=== PATIENT | female | born 1965 | race Caucasian/White ===

== ENCOUNTER → 2017-10-26 11:16 | Outpatient (CLI) | payer OTHER, SELFPAY ==
[2017-10-26 12:38] LABS: Prolactin 29.9 ng/mL (3.0-18.6)
== END ==
PROVIDERS: PCP Physician Assistant Medical
DX: E22.9 Hyperfunction of pituitary gland, unspecified (principal)
CPT/HCPCS: 36415; 84146

== ENCOUNTER → 2019-01-07 17:13 | Outpatient (CLI) | payer OTHER, SELFPAY ==
--- NOTE | 2019-01-07 | DI.MG.S_ITS ---
BILATERAL DIGITAL SCREENING MAMMOGRAM 3D/2D WITH CAD: 01/07/2019 CLINICAL: Routine screening. Comparison is made to exams dated: 10/13/2017 mammogram, 03/17/2016 mammogram, and 05/22/2014 mammogram - [facility]. There are scattered fibroglandular elements in both breasts. Current study was also evaluated with a Computer Aided Detection (CAD) system. There are mole markers on the right breast. There is a mole marker on the left breast. No significant masses, calcifications, or other findings are seen in either breast. There has been no significant interval change. IMPRESSION: NEGATIVE There is no mammographic evidence of malignancy. A 1 year screening mammogram is recommended. This exam was interpreted at Station ID: [id number]. NOTE: For mammograms, a report in lay terms will be sent to the patient. Approximately 15% of breast malignancies will not be visualized mammographically. In the management of a palpable breast mass, a negative mammogram must not discourage biopsy of a clinically suspicious lesion. Electronically Signed By: Carlos Eduardo oneil/analia:01/07/2019 19:26:51 letter sent: Normal Exam ACR BI-RADS Category 1: Negative 3341F
== END ==
PROVIDERS: Family Provider Physician Assistant Medical; PCP Physician Assistant Medical
DX: Z12.31 Encounter for screening mammogram for malignant neoplasm of breast (principal)
CPT/HCPCS: 77063; 77067

== ENCOUNTER → 2019-07-18 09:33 | Outpatient (CLI) | payer OTHER, SELFPAY ==
[2019-07-18 11:33] LABS: Prolactin 19.6 ng/mL (3.0-18.6)
== END ==
PROVIDERS: Family Provider Physician Assistant Medical; PCP Physician Assistant Medical
DX: E22.9 Hyperfunction of pituitary gland, unspecified (principal)
CPT/HCPCS: 36415; 84146

== ENCOUNTER 2019-12-25 16:21 | Emergency (ER) | payer OTHER, SELFPAY ==
[2019-12-25 16:48] VITALS: BP 155/84; PULSE 97; RESP 18; TEMP 37.2; O2SAT 98; BMI 26.6
--- NOTE | 2019-12-25 19:49 | DI.CT.S_ITS ---
PROCEDURE: CT SOFT TISSUE NECK W CON INDICATIONS: preauricular pain swelling redness R side TECHNIQUE: After the administration of intravenous contrast, 3.0 mm axial sections acquired from the sella to the aortic arch. Additional oblique axial 3.0 mm sections acquired through the pharynx. 3 mm thick coronal and sagittal reformats were generated. For radiation dose reduction, the following was used: automated exposure control. COMPARISON: None. FINDINGS: Image quality: Excellent. Lymph nodes: No enlarged lymph nodes seen throughout the neck. Vessels: Visualized vasculature appears patent. Neck spaces: The oropharynx, nasopharynx, and pharynx demonstrate no mucosal lesions. The vocal cords, false vocal cords, pyriform sinuses, epiglottis, vallecula, and tongue base all appear normal. Extramucosal spaces appear unremarkable. Glands: The parotid and submandibular glands appear normal. Thyroid gland negative . There is prominent soft tissue thickening and increased attenuation involving the right external auditory canal. There is also mild asymmetric enlargement of the adjacent right parotid gland, with enhancing presumed intraparotid lymph nodes which may be reactive although technically nonspecific etiology. No discrete abscess is seen. Left maxillary mucous retention cyst or polyp. Bones: No suspicious bony lesions. Visualized sinuses and mastoids appear unremarkable. IMPRESSION: Nonspecific prominent soft tissue thickening and ill-defined soft tissue attenuation involving the right external auditory canal. Adjacent enlargement of the right parotid gland. Findings could reflect right otitis externa, with reactive or concomitant right parotid inflammation. Superimposed postsurgical changes or recurrent tumor are in the differential. Recommend clinical correlation and management , and follow-up to exclude underlying skin or soft tissue malignancy after treatment. Dictated by: Rod Jimenez M.D. on 12/25/2019 at 20:46 Approved by: Rod Jimenez M.D. on 12/25/2019 at 20:53
[2019-12-25 20:07] LABS: Add Manual Diff / Slide Review NO; Basophils Absolute Auto 100 /uL (0-100); Basophils Percent Auto 0.6 % (0-2); Eosinophils Absolute Auto 100 /uL (0-450); Eosinophils Percent Auto 0.6 % (2-4); Hematocrit 42.2 % (36-46); Hemoglobin 14.3 g/dL (12.0-16.0); Lymphocytes Absolute Auto 1400 /uL (1100-4500); Mean Corpuscular HGB Conc 33.8 % (30-36); Mean Corpuscular Hemoglobin 31.2 PG (26-34); Mean Corpuscular Volume 92.5 fL (80-100); Monocytes Absolute Auto 900 /uL (0-900); Monocytes Percent Auto 6.1 % (3-14); Neutrophils Absolute Auto 11900 /uL (1500-7000); Neutrophils Percent Auto 82.7 % (50-75); Platelet Count 291 X10^3/uL (150-400); Red Blood Cell Count 4.56 X10^6/uL (4.0-5.2); Red Cell Distribution Width 12.9 % (11.6-14.8); White Blood Cell Count 14.4 X10^3/uL (4.5-11.0)
[2019-12-25] MEDS: SODIUM CHLORIDE 0.9% 1,000 ML 1000 ML IV (20:16)
[2019-12-25] MEDS: KETOROLAC 60 MG/2 ML VIAL 30 MG IV (20:16)
[2019-12-25 20:22] LABS: Alanine Aminotransferase 17 IU/L (<35); Albumin 4.9 g/dL (3.5-5.0); Albumin Globulin Ratio 1.5 (1.0-2.8); Alkaline Phosphatase 89 U/L (38-126); Aspartate Aminotransferase 21 IU/L (14-36); BUN Creatinine Ratio 27.3 (6-22); Bilirubin Total 0.7 mg/dL (0.2-1.3); Blood Urea Nitrogen 15 mg/dL (7-17); Calcium 9.7 mg/dL (8.4-10.2); Carbon Dioxide 25 mmol/L (22-32); Chloride 105 mmol/L (98-107); Estimated Glomerular Filt Rate > 60.0 mL/min (>60); Globulin 3.3 g/dL (1.7-4.1); Glucose 108 mg/dL (70-100); HEMOLYSIS < 15 (0-50); Lactate (Lactic Acid) 1.1 mmol/L (0.7-2.1); Magnesium 1.9 mg/dL (1.6-2.3); Sodium 138 mmol/L (137-145); Total Protein 8.2 g/dL (6.3-8.2)
--- NOTE | 2019-12-25 20:23 | PC.NURSE ---
Pt has taken 4 doses of augmentin and antibiotic ear drops. pain and inflammation continues to right ear. Inflammation is extending into check
--- NOTE | 2019-12-25 21:10 | ED.EAR ---
HPI - Ear Problem <CARMEL Abad-BC - Last Filed: 12/28/19 11:08> General Chief complaint: Ear Stated complaint: RIGHT EAR INFECTION Time Seen by Provider: 12/25/19 19:32 Source: patient and family Mode of arrival: Ambulatory Limitations: no limitations History of Present Illness HPI Narrative: The patient is a with history of cholesteatoma, hearing loss who presents with a chief complaint of worsening ear infection. She states that she was diagnosed with an ear infection yesterday, and has taken 4 doses of Augmentin. Since then she has noticed swelling in her preauricular area. She complains of severe pain, and swelling in her ear so bad she cannot use her hearing aids. She sees Dr. Bah from [facility], has an appointment with them coming up on the of next month. However her pain and swelling got so bad that she came to the emergency department today. Nausea vomiting or diarrhea. She has been using ibuprofen for pain, states that the pain is excruciating. Related Data Home Medications Medication Instructions Recorded Confirmed atorvastatin 10 mg tablet 10 mg PO DAILY 10/26/17 07/18/19 omega-3 fatty acids 1,000 mg 1,000 mg PO DAILY 07/18/19 07/18/19 capsule Previous Rx's Medication Instructions Recorded ketorolac 10 mg PO TID PRN #10 tab 12/25/19 prednisone 50 mg PO DAILY #4 tab 12/25/19 Allergies Allergy/AdvReac Type Severity Reaction Status Date / Time No Known Drug Allergies Allergy Unverified 12/25/19 16:51 Review of Systems <MARINA Abad - Last Filed: 12/28/19 11:08> Review of Systems Narrative: GENERAL: Denies chills, fatigue, malaise, fever, sweats. HEENT: See HPI RESPIRATORY: Denies dyspnea, cough, wheezing, hemoptysis, sputum. CARDIOVASCULAR: Denies chest pain, palpitations, orthopnea, edema, GASTROINTESTINAL: Denies nausea, vomiting, abdominal pain, diarrhea, constipation, melena. : Denies dysuria, frequency, incontinence, hematuria, urinary retention. MUSCULOSKELETAL: denies weakness, joint pain, or bony pain SKIN: Denies rash, skin lesions, or other NEUROLOGIC: Denies weakness, headache, numbness, change in speech, confusion, seizures, incoordination. PSYCHIATRIC: No concerning psychosocial issues. 12 point review of systems is negative except for those stated above Patient History <MARINA Abad - Last Filed: 12/28/19 11:08> Medical History Elevated prolactin level (Acute) Psoriasis (Acute) Surgical History Hx laparoscopic cholecystectomy (Acute) Social History Smoking Status: Former smoker Smoking Status: Former smoker alcohol intake frequency: 0-2 drinks per day Substance Use Type: does not use Exam <MARINA Abad - Last Filed: 12/28/19 11:08> Narrative Exam Narrative: GENERAL: This is a well-nourished, well-developed patient, teary and in mild distress HEAD: Atraumatic. Normocephalic. No temporal or scalp tenderness. EYES: Pupils equal round and reactive. Extraocular motions intact. No scleral icterus. No injection or drainage. ENT: Nose without bleeding, purulent drainage or septal hematoma. Throat without erythema, tonsillar hypertrophy or exudate. Uvula midline. Airway patent. Left ear canal has no swelling, no erythema, appears to have perforated tympanic membrane. Right ear canal erythematous, drainage noted, perforated TM noted, preauicular swelling with pain to palpation noted NECK: Trachea midline. No JVD or lymphadenopathy. Supple, nontender, no meningeal signs. CARDIOVASCULAR: Regular rate and rhythm RESPIRATORY: Clear to auscultation. Breath sounds equal bilaterally. No wheezes, rales, or rhonchi. No cough. No increased respiratory effort. No accessory muscle use. GASTROINTESTINAL: Abdomen soft, non-tender, nondistended. No hepato-splenomegaly, or palpable masses. No guarding. EXTREMITIES: No clubbing, cyanosis, or edema. No joint tenderness, effusion, or edema noted. BACK: Nontender without deformity or crepitance. No flank tenderness. NEURO: AOx3. SKIN: No rash or erythema. Initial Vital Signs Initial Vital Signs: Vital Signs Temperature 98.9 F 12/25/19 16:48 Pulse Rate 97 H 12/25/19 16:48 Respiratory Rate 18 12/25/19 16:48 Blood Pressure 155/84 H 12/25/19 16:48 Pulse Oximetry 98 12/25/19 16:48 <Alvino Watson DO - Last Filed: 12/29/19 19:26> Initial Vital Signs Initial Vital Signs: Vital Signs Temperature 98.9 F 12/25/19 16:48 Pulse Rate 97 H 12/25/19 16:48 Respiratory Rate 18 12/25/19 16:48 Blood Pressure 155/84 H 12/25/19 16:48 Pulse Oximetry 98 12/25/19 16:48 Scores <MARINA Abad - Last Filed: 12/28/19 11:08> GCS Altaf coma scale eye opening: Spontaneous Altaf coma scale verbal response: Orientated Altaf coma scale motor response: Obey commands Altaf coma scale total score: 15 Course <MARINA Abad - Last Filed: 12/28/19 11:08> Orders Ordered: Discontinued Medications Hydrocodone Bitart/Acetaminophen (Vicodin 5/325 Prepack) 1 bottle MISC SEEINSTR ONE Stop: 12/25/19 21:36 Last Admin: 12/25/19 21:53 Dose: 1 bottle Documented by: FARNAZ Sodium Chloride (Normal Saline 0.9%) 1,000 mls @ 1,000 mls/hr IV BOLUS ONE Stop: 12/25/19 20:46 Last Infusion: 12/25/19 21:45 Dose: 0 mls/hr Documented by: Admin: 12/25/19 20:16 Dose: 1,000 mls/hr Documented by: FARNAZ Ketorolac Tromethamine (Toradol) 30 mg IV NOW ONE Stop: 12/25/19 19:48 Last Admin: 12/25/19 20:16 Dose: 30 mg Documented by: FARNAZ Ketorolac Tromethamine (Toradol 10mg Prepack) 1 bottle MISC SEEINSTR ONE Stop: 12/25/19 21:36 Last Admin: 12/25/19 21:53 Dose: 1 bottle Documented by: FARNAZ Prednisone (Deltasone) 60 mg PO NOW ONE Stop: 12/25/19 21:36 Last Admin: 12/25/19 21:53 Dose: 60 mg Documented by: FARNAZ Vital Signs Vital signs: Vital Signs - 8 hr 12/25/19 16:48 Temperature 98.9 F Pulse Rate 97 H Respiratory Rate 18 Blood Pressure 155/84 H Pulse Oximetry 98 <Alvino Watson DO - Last Filed: 12/29/19 19:26> Orders Ordered: Discontinued Medications Hydrocodone Bitart/Acetaminophen (Vicodin 5/325 Prepack) 1 bottle MISC SEEINSTR ONE Stop: 12/25/19 21:36 Last Admin: 12/25/19 21:53 Dose: 1 bottle Documented by: FARNAZ Sodium Chloride (Normal Saline 0.9%) 1,000 mls @ 1,000 mls/hr IV BOLUS ONE Stop: 12/25/19 20:46 Last Infusion: 12/25/19 21:45 Dose: 0 mls/hr Documented by: Admin: 12/25/19 20:16 Dose: 1,000 mls/hr Documented by: FARNAZ Ketorolac Tromethamine (Toradol) 30 mg IV NOW ONE Stop: 12/25/19 19:48 Last Admin: 12/25/19 20:16 Dose: 30 mg Documented by: FARNAZ Ketorolac Tromethamine (Toradol 10mg Prepack) 1 bottle MISC SEEINSTR ONE Stop: 12/25/19 21:36 Last Admin: 12/25/19 21:53 Dose: 1 bottle Documented by: FARNAZ Prednisone (Deltasone) 60 mg PO NOW ONE Stop: 12/25/19 21:36 Last Admin: 12/25/19 21:53 Dose: 60 mg Documented by: FARNAZ Vital Signs Vital signs: Vital Signs - 8 hr 12/25/19 16:48 Temperature 98.9 F Pulse Rate 97 H Respiratory Rate 18 Blood Pressure 155/84 H Pulse Oximetry 98 Medical Decision Making <CARMEL Abad-BC - Last Filed: 12/28/19 11:08> Lab Data Result diagrams: 12/25/19 20:00 12/25/19 20:00 Labs: Lab Results 12/25/19 12/25/19 12/25/19 Range/Units 20:00 20:00 20:00 WBC 14.4 H (4.5-11.0) X10^3/uL RBC 4.56 (4.0-5.2) X10^6/uL Hgb 14.3 (12.0-16.0) g/dL Hct 42.2 (36-46) % MCV 92.5 (80-100) fL MCH 31.2 (26-34) PG MCHC 33.8 (30-36) % RDW 12.9 (11.6-14.8) % Plt Count 291 (150-400) X10^3/uL Neut % (Auto) 82.7 H (50-75) % Lymph % (Auto) 10.0 L (25-40) % [place] % (Auto) 6.1 (3-14) % Eos % (Auto) 0.6 L (2-4) % Baso % (Auto) 0.6 (0-2) % Neut # (Auto) 88432 H (4659-0980) /uL Lymph # (Auto) 1400 (4380-3267) /uL [place] # (Auto) 900 (0-900) /uL Eos # (Auto) 100 (0-450) /uL Baso # (Auto) 100 (0-100) /uL Sodium 138 (137-145) mmol/L Potassium 4.0 (3.4-5.1) mmol/L Chloride 105 (98-107) mmol/L Carbon Dioxide 25 (22-32) mmol/L BUN 15 (7-17) mg/dL Creatinine 0.55 (0.52-1.04) mg/dL Estimated GFR > 60.0 (>60) mL/min BUN/Creatinine Ratio 27.3 H (6-22) Glucose 108 H (70-100) mg/dL Lactate 1.1 (0.7-2.1) mmol/L Calcium 9.7 (8.4-10.2) mg/dL Magnesium 1.9 (1.6-2.3) mg/dL Total Bilirubin 0.7 (0.2-1.3) mg/dL AST 21 (14-36) IU/L ALT 17 (<35) IU/L Alkaline Phosphatase 89 (38-126) U/L Total Protein 8.2 (6.3-8.2) g/dL Albumin 4.9 (3.5-5.0) g/dL Globulin 3.3 (1.7-4.1) g/dL Albumin/Globulin Ratio 1.5 (1.0-2.8) MDM Narrative Medical decision making narrative: The patient is a 54-year-old female who presents with a chief complaint of worsening ear infection on the right side. Given concerns of parotiditis on her exam, I did obtain a soft tissue neck. This shows some parotid swelling, no obvious abscess or infection. She has no signs of systemic illness, is eating and drinking well, is afebrile. I spoke with Dr. herrera from [facility] recommends that the post continue her antibiotic drops, Augmentin p.o. as prescribed by the outside provider. Will add prednisone as per his recommendations. The patient is welcome to call them if she feels worse to get in for a quicker appointment than the . Otherwise to keep her appointment on the . I discussed this at length with the patient. She feels much improved after the above-stated therapies, also gave prescriptions of Toradol and take-home packs of Toradol and [place]. Discussed coming back to the emergency department for any acute concerns. Patient has been have no questions or concerns upon discharge and state understanding of return precautions as well as follow-up care. <Alvino Watson, DO - Last Filed: 12/29/19 19:26> Lab Data Labs: Lab Results 12/25/19 12/25/19 12/25/19 Range/Units 20:00 20:00 20:00 WBC 14.4 H (4.5-11.0) X10^3/uL RBC 4.56 (4.0-5.2) X10^6/uL Hgb 14.3 (12.0-16.0) g/dL Hct 42.2 (36-46) % MCV 92.5 (80-100) fL MCH 31.2 (26-34) PG MCHC 33.8 (30-36) % RDW 12.9 (11.6-14.8) % Plt Count 291 (150-400) X10^3/uL Neut % (Auto) 82.7 H (50-75) % Lymph % (Auto) 10.0 L (25-40) % [place] % (Auto) 6.1 (3-14) % Eos % (Auto) 0.6 L (2-4) % Baso % (Auto) 0.6 (0-2) % Neut # (Auto) 09271 H (7492-0445) /uL Lymph # (Auto) 1400 (6459-4174) /uL [place] # (Auto) 900 (0-900) /uL Eos # (Auto) 100 (0-450) /uL Baso # (Auto) 100 (0-100) /uL Sodium 138 (137-145) mmol/L Potassium 4.0 (3.4-5.1) mmol/L Chloride 105 (98-107) mmol/L Carbon Dioxide 25 (22-32) mmol/L BUN 15 (7-17) mg/dL Creatinine 0.55 (0.52-1.04) mg/dL Estimated GFR > 60.0 (>60) mL/min BUN/Creatinine Ratio 27.3 H (6-22) Glucose 108 H (70-100) mg/dL Lactate 1.1 (0.7-2.1) mmol/L Calcium 9.7 (8.4-10.2) mg/dL Magnesium 1.9 (1.6-2.3) mg/dL Total Bilirubin 0.7 (0.2-1.3) mg/dL AST 21 (14-36) IU/L ALT 17 (<35) IU/L Alkaline Phosphatase 89 (38-126) U/L Total Protein 8.2 (6.3-8.2) g/dL Albumin 4.9 (3.5-5.0) g/dL Globulin 3.3 (1.7-4.1) g/dL Albumin/Globulin Ratio 1.5 (1.0-2.8) Discharge Plan Departure Patient Disposition: Home Clinical Impression: Swelling of right parotid gland Otitis externa Qualifiers: Otitis externa type: unspecified type Chronicity: acute Laterality: right Qualified Code(s): H60.501 - Unspecified acute noninfective otitis externa, right ear Discharge Date/Time: 12/25/19 22:04 Instructions: How to Instill Ear Drops, DI for Otitis Externa, DI for Parotitis-Adult Activity Restrictions/Additional Instructions: Thank you for trusting us with your care today. I am sorry that you are feeling poorly and hope you feel better soon. I spoke with Dr. Sebastian from [facility] regarding your exam and imaging results. We have placed you on steroids. We are continuing the Augmentin and ear drops prescribed by the other provider. As discussed, you can call [facility] and speak with the answering service if you are feeling poorly and getting worse while they are closed. Please call them if you are getting worse. Please come back to the emergency department for any acute concerns We are sending her home with to pre packs today. This includes hydrocodone with Tylenol and ketorolac I have given you a pack of a narcotic for pain. Be aware that this can be constipating and sedating. I encouraged taking with a stool softener, pushing fluids and fiber. Do not take and drive, operate heavy machinery, etc. Do not combine it with any other sedating substances such as alcohol. The combination of narcotics and alcohol and/or other sedatives can be lethal. I sent 2 prescriptions to [facility] pharmacy. This includes a steroid as well as ketorolac or Toradol. I have given you a prescription of Toradol. This is an NSAID. Do not combine it with other NSAIDs such as Aleve or ibuprofen. I suggest taking it with some food, as it can irritate your stomach. Prescriptions: New ketorolac 10 mg tablet 10 mg PO TID PRN (Reason: pain) Qty: 10 RF: 0 prednisone 50 mg tablet 50 mg PO DAILY Qty: 4 RF: 0 No Action atorvastatin [Lipitor] 10 mg tablet 10 mg PO DAILY RF: 0 omega-3 fatty acids [Fish Oil Concentrate] 1,000 mg capsule 1,000 mg PO DAILY RF: 0 Referrals: [facility] [Provider Group] Zhang Saenz MD [Physician] - Cecil Sebastian MD [Physician] - Rachel Quintero PA-C [Primary Care Provider] - <Alvino Watson DO - Last Filed: 12/29/19 19:26> [facility] I was immediately available in the department for consultation. This documentation has been reviewed and I agree with assessment and plan. Supervised by Alvino Watson DO
[2019-12-25] MEDS: KETOROLAC 10MG PREPACK 1 BOTTLE MISC (21:53)
[2019-12-25] MEDS: predniSONE 20 MG TABLET 60 MG PO (21:53)
[2019-12-25] MEDS: HYDROCODONE/ACET 5/325 PREPACK 1 BOTTLE MISC (21:53)
[2019-12-25 21:57] VITALS: BP 141/78; PULSE 88; RESP 17; O2SAT 98
== END 2019-12-25 22:04 | disposition home or self-care (01) ==
PROVIDERS: Emergency Provider Nurse Practitioner Family; Family Provider Physician Assistant Medical; PCP Physician Assistant Medical
DX: H60.501 Unspecified acute noninfective otitis externa, right ear (principal); K11.1 Hypertrophy of salivary gland
CPT/HCPCS: 36415; 70491; 80053; 83605; 83735; 85025; 96361; 96374; 99284; J1885; Q9967

== ENCOUNTER → 2020-02-24 08:47 | Outpatient (CLI) | payer OTHER, SELFPAY ==
[2020-02-25 14:12] LABS: COVID19 Sendout Not Detected (Not Detect)
== END ==
PROVIDERS: Family Provider Physician Assistant Medical; PCP Physician Assistant Medical; Visit Provider Physician Assistant
DX: Z11.59 Encounter for screening for other viral diseases (principal)
CPT/HCPCS: 87635

== ENCOUNTER 2020-02-27 07:58 | Day surgery (SDC) | payer OTHER, SELFPAY ==
[2020-02-27 08:24] VITALS: BP 115/67; PULSE 89; RESP 16; TEMP 36.5; O2SAT 98; BMI 29.2
[2020-02-27] MEDS: SODIUM CHLORIDE 0.9% 1,000 ML 200 ML IV (08:46)
--- NOTE | 2020-02-27 08:58 | PM.HP.1 ---
History of Present Illness History of Present Illness Date Patient Seen: 02/27/20 Time Patient Seen: 08:58 Chief complaint: SDC Narrative: This is a 54-year-old woman here for her 1st screening colonoscopy. She denies any history of rectal bleeding, melena, unexplained abdominal pain, unexplained weight loss. She says she has had an episode of diverticulitis treated with antibiotics. She denies any known family history of colon cancers or colon polyps. She says she is otherwise quite healthy. ROS: Thirteen system review is otherwise negative other than as mentioned below and in HPI. PE: GENERAL: Well groomed and cooperative. Appears stated age. Answers questions promptly and appropriately. Vital signs noted. HENT: Normocephalic, atraumatic. Hearing intact. EYES: Conjunctiva pink, sclera white, no periorbital swelling. CARDIOVASCULAR: Regular rate. No pedal edema. RESPIRATORY: Non-tachypneic, breathing comfortably on room air. GASTROINTESTINAL: Abdomen soft and non-distended GENITALURINARY: No flank tenderness. MUSCULOSKELETAL: Equal tone and mass bilaterally. SKIN: Warm, dry, soft, appropriate color for ethnicity. No other lesions, rashes, or wounds. NEURO: Alert and Oriented X 3. No gross sensory deficits, or cognitive issues. PSYCH: Appropriate affect and mood. Patient History Medical History Elevated prolactin level (Acute) Psoriasis (Acute) Surgical History Hx laparoscopic cholecystectomy (Acute) Family & Social History Social History: household members spouse Tobacco & Substance use: Tobacco type cigarettes Smoking Status Current every day smoker alcohol intake current alcohol intake frequency a few times a week Substance Use Type does not use Meds Home Medications and Allergies Home Medications Medication Instructions Recorded Confirmed Type atorvastatin 10 mg tablet 10 mg PO DAILY 10/26/17 02/27/20 History omega-3 fatty acids 1,000 mg 1,000 mg PO DAILY 07/18/19 02/27/20 History capsule Allergies Allergy/AdvReac Type Severity Reaction Status Date / Time No Known Drug Allergies Allergy Verified 02/27/20 08:29 Exam Vital Signs (past 8 hours): - 02/27/20 08:24 Temperature 97.7 F Pulse Rate 89 Respiratory Rate 16 Blood Pressure 115/67 Pulse Oximetry 98 Oxygen Delivery Method Room Air Assessment & Plan Assessment and plan (1) At average risk for colon cancer: Problem details: Risks and benefits of screening colonoscopy and possible polypectomy were discussed with the patient including risk of bleeding, perforation, need for additional procedures, risks of anesthesia. The patient desires to proceed with the colonoscopy procedure. Status: Acute (2) Diverticulitis: Status: Acute COVID-19 COVID-19 status: Negative Result date/Date tested (Pos, Neg/Pending): 02/24/20 Time Spent With Patient Time with patient: 15-24 minutes Quality VTE Deep Vein Thrombosis/Pulmonary Embolism Present on Admission: No
--- NOTE | 2020-02-27 09:00 | P.OP.ENDO_ITS ---
Operative Date/Time/Diagnoses Date of procedure: 02/27/20 Time of procedure: 09:00 Pre-op diagnosis: History of diverticulitis, average risk colon cancer Post-op diagnosis: other (Extensive diverticulosis throughout the entire colon, redundant folds of mucosa in the left colon secondary to diverticulosis and history of diverticulitis) Procedure & Clinicians Study performed: Colonoscopy Procedural sedation performed by the endoscopist Indications: Average risk for colon cancer, in need of screening colonoscopy Surgeon: Lavinia Santoro Procedure Notes SCOAP/Timeout: Performed Procedure in detail: The patient was brought to the room and placed in left lateral decubitus position with all bony prominences padded. A time-out was performed and then the patient was given procedural sedation starting with 4 mg of Versed and 100 mcg of fentanyl. Total of 8 mg of Versed and 150 micro g of fentanyl were given for the entire procedure. Vitals were monitored throughout the procedure and remained stable. Once adequately sedated, the procedure was begun. A rectal exam was performed revealing no abnormalities. The colonoscope was then introduced to the rectum and advanced to the cecum in the usual fashion. The cecum was identified by the appendiceal orifice, the mucosal tri- fold, and the ileocecal valve. The scope was then retracted while rotating side to side and examining each mucosal fold. Was extensive diverticulosis throughout the entire colon. The most significant evidence of diverticulosis in the left and sigmoid colon, with redundant folds of mucosa and extensive scarring from diverticulosis and diverticulitis. Due to the redundant folds and scarring of the mucosa small polyps less than 5 mm could have been missed. At the conclusion of the procedure retroflexion was performed and small grade 1-2 internal hemorrhoids without stigmata of bleeding were seen. The scope was then withdrawn from the rectum the procedure was concluded. The patient tolerated the procedure well and was transferred to the PACU in stable condition. Scope withdrawal time: 8 Sedation minutes: 16 Findings: diverticulosis (Extensive) Impression: Extensive diverticulosis, redundant mucosal folds in scarring in the descending and sigmoid colon Post-procedure Recommendations: Colonscopy in 5 years (Due to high risk of missing small polyps secondary to redundant mucosa and scarring from diverticulosis) and Other recommendation (Fiber supplement such as Metamucil or Benefiber to reduce the risk of diverticulosis and episodes of diverticulitis) Follow up: as needed Disposition: PACU
[2020-02-27] MEDS: fentaNYL 250 MCG/5 ML INJ IV (09:01)
[2020-02-27] MEDS: MIDAZOLAM 5 MG/5 ML VIAL IV (09:01)
[2020-02-27 09:27] VITALS: BP 122/76; PULSE 91; RESP 15; TEMP 36.2; O2SAT 100
[2020-02-27 09:32] VITALS: BP 121/84; PULSE 93; RESP 12; O2SAT 94
[2020-02-27 09:37] VITALS: BP 113/82; PULSE 96; RESP 16; O2SAT 93
--- NOTE | 2020-02-27 09:39 | SUR.PHASEI ---
Dr. Santoro spoke with patient. Pt drowsy, tolerating PO well. VSS. Frankie hearing aids in place.
[2020-02-27 09:42] VITALS: BP 109/74; PULSE 83; RESP 16; TEMP 36.4; O2SAT 93
[2020-02-27 09:52] VITALS: BP 107/71; PULSE 82; RESP 16; TEMP 36.7; O2SAT 98
== END 2020-02-27 10:03 | disposition home or self-care (01) ==
PROVIDERS: PCP Physician Assistant Medical; Referring Provider Physician Assistant Medical; Visit Provider Surgery
PROC: 0DJD8ZZ Inspection of Lower Intestinal Tract, Via Natural or Artificial Opening Endoscopic (ICD-10-PCS; CPT 45378; principal; 2020-02-27 09:15)
DX: Z12.11 Encounter for screening for malignant neoplasm of colon (principal); K57.30 Diverticulosis of large intestine without perforation or abscess without bleeding; K64.0 First degree hemorrhoids
CPT/HCPCS: 45378; 99152; J2250; J3010

== ENCOUNTER → 2022-03-18 10:05 | Outpatient (CLI) | payer OTHER, SELFPAY ==
--- NOTE | 2022-03-18 10:06 | DI.MG.S_ITS ---
BILATERAL DIGITAL SCREENING MAMMOGRAM 3D/2D WITH CAD: 03/18/2022 CLINICAL: Routine screening. Comparison is made to exams dated: 01/07/2019 mammogram, 10/13/2017 mammogram, and 03/17/2016 mammogram - [facility]. There are scattered areas of fibroglandular density in both breasts (category b / 25%-50% glandular tissue). Current study was also evaluated with a Computer Aided Detection (CAD) system. No significant masses, calcifications, or other findings are seen in either breast. There has been no significant interval change. IMPRESSION: NEGATIVE There is no mammographic evidence of malignancy. A 1 year screening mammogram is recommended. Based on the Tyrer Cuzick model (a risk assessment model) the patient's lifetime risk is 5.8% and her 10 year risk is 1.9%. According to the ACR, ACS, and NCCN guidelines, an annual breast MRI exam along with mammogram is recommended if the patient's lifetime risk is 20% or greater. This exam was interpreted at Station ID: [id number]. NOTE: For mammograms, a report in lay terms will be sent to the patient. Approximately 15% of breast malignancies will not be visualized mammographically. In the management of a palpable breast mass, a negative mammogram must not discourage biopsy of a clinically suspicious lesion. Electronically Signed By: Lilian shine/analia:03/20/2022 09:51:22 letter sent: Normal Exam ACR BI-RADS Category 1: Negative 3341F
== END ==
PROVIDERS: PCP Physician Assistant Medical; Referring Provider Physician Assistant Medical; Visit Provider Physician Assistant Medical
DX: Z12.31 Encounter for screening mammogram for malignant neoplasm of breast (principal)
CPT/HCPCS: 77063; 77067

== ENCOUNTER → 2023-06-09 09:47 | Outpatient (CLI) | payer OTHER, SELFPAY ==
--- NOTE | 2023-06-09 | DI.MG.S_ITS ---
BILATERAL DIGITAL SCREENING MAMMOGRAM 3D/2D WITH CAD: 06/09/2023 CLINICAL: Routine screening. Comparison is made to exams dated: 03/18/2022 mammogram, 01/07/2019 mammogram, and 10/13/2017 mammogram - [facility]. There are scattered areas of fibroglandular density in both breasts (category b / 25%-50% glandular tissue). Current study was also evaluated with a Computer Aided Detection (CAD) system. No significant masses, calcifications, or other findings are seen in either breast. There has been no significant interval change. IMPRESSION: NEGATIVE There is no mammographic evidence of malignancy. A 1 year screening mammogram is recommended. Based on the Tyrer Cuzick model (a risk assessment model) the patient's lifetime risk is 5.6% and her 10 year risk is 2.0%. According to the ACR, ACS, and NCCN guidelines, an annual breast MRI exam along with mammogram is recommended if the patient's lifetime risk is 20% or greater. This exam was interpreted at Station ID: [id number]. NOTE: For mammograms, a report in lay terms will be sent to the patient. Approximately 15% of breast malignancies will not be visualized mammographically. In the management of a palpable breast mass, a negative mammogram must not discourage biopsy of a clinically suspicious lesion. Electronically Signed By: Lilian shine/[email or web address]:06/11/2023 12:55:22 letter sent: Normal Exam ACR BI-RADS Category 1: Negative [id number]
== END ==
LOC: MAMMO 09:48
PROVIDERS: PCP Physician Assistant Medical; Referring Provider Physician Assistant Medical; Visit Provider Physician Assistant Medical
DX: Z12.31 Encounter for screening mammogram for malignant neoplasm of breast (principal); R92.323 Mammographic fibroglandular density, bilateral breasts
CPT/HCPCS: 77063; 77067